=== PATIENT | female | born 2000 | race Caucasian/White ===

== ENCOUNTER 2020-09-11 13:31 | Emergency (ER) | payer SELFPAY ==
[~2020-09-11] VITALS: Ht 160 cm; Wt 80.0 kg
[2020-09-11 15:44] VITALS: BP 106/64; PULSE 80; TEMP 98.8
== END 2020-09-11 16:00 | disposition home or self-care (01) ==
LOC: COL.ER 13:31
DX: M79.601 Pain in right arm (principal)

== ENCOUNTER 2021-10-15 13:07 | Emergency (ER) | payer SELFPAY ==
[~2021-10-15] VITALS: Ht 160 cm; Wt 81.8 kg
[~2021-10-15 13:07] MED LIST: CEPHALEXIN500 M1 PO
[2021-10-15 13:54] VITALS: TEMP 98.3
[2021-10-15] MEDS ORDERED: ZOLOFT 25MG25 MG PO (14:11)
[2021-10-15 15:17] LABS: BASO % 0.5 % (0.0-2.0); EOS # 0.1 K/mm3 (0.0-0.7); EOS % 0.6 % (0-4.0); GRAN # 5.8 K/mm3 (1.4-6.5); HEMATOCRIT 42.4 % (37.0-47.0); HEMOGLOBIN 14.4 g/dl (12.5-16.0); LYMPH # 2.4 K/mm3 (1.2-3.4); LYMPH % 27.8 % (20.0-51.0); MEAN CELL VOLUME 84 fl (80.0-100.0); MEAN CORPUSCULAR HEMOGLOBIN 29 pg (27.0-31.0); MEAN CORPUSCULAR HGB CONC 34 g/dl (33.0-37.0); MEAN PLATELET VOLUME 10.8 fl (7.4-10.4); MONO # 0.4 K/mm3 (0.1-0.6); MONO % 4.9 % (1.7-9.3); PLATELET COUNT 254 K/mm3 (130-400); RED BLOOD COUNT 5.04 M/mm3 (4.10-5.30); REDCELL DISTRIBUTION WIDTH-CV 12.6 % (11.5-14.5)
[2021-10-15 15:39] LABS: ALBUMIN 4.2 gm/dL (3.5-5.0); BILIRUBIN,TOTAL 0.7 mg/dL (0.2-1.2); CALCIUM 9.4 mg/dL (8.4-10.2); CREATININE, serum 0.69 mg/dL (0.57-1.11); POTASSIUM 4.1 mmol/L (3.5-4.5); TOTAL PROTEIN 7.5 gm/dL (6.2-8.1)
[2021-10-15 16:23] VITALS: BP 112/72; PULSE 72
== END 2021-10-15 16:25 | disposition home or self-care (01) ==
LOC: COL.ER 13:07
PROVIDERS: Nurse Practitioner
DX: J06.9 Acute upper respiratory infection, unspecified (principal); F32.A Depression, unspecified; F41.9 Anxiety disorder, unspecified; F17.290 Nicotine dependence, other tobacco product, uncomplicated; Z20.822 Contact with and (suspected) exposure to COVID-19; Z79.899 Other long term (current) drug therapy
CPT/HCPCS: J1885; J7030

== ENCOUNTER 2022-05-08 14:34 | Outpatient (CLI) | payer MEDICAID ==
[~2022-05-08] VITALS: Ht 160 cm; Wt 97.6 kg
[~2022-05-08 14:34] MED LIST changes: +ZOLOFT 25MG25 MG PO
--- NOTE | 2022-05-08 14:35 | NUR ---
Presents to labor and delivery. States was kicked in the left lower abdominal area by a preschool child. Says just want to make sure everything is okay. Assessment done, questions offered and answered.
[2022-05-08 14:45] VITALS: BP 111/60; PULSE 86; TEMP 98
[2022-05-08 15:00] VITALS: BP 114/60; PULSE 85
[2022-05-08] MEDS ORDERED: PRENATAL TABLET PO (15:09)
[2022-05-08] MEDS ORDERED: PREVACID 30MG30 M1 PO (15:09)
[2022-05-08 15:30] VITALS: BP 111/68; PULSE 86
--- NOTE | 2022-05-08 16:00 | NUR ---
Discharge instructions given, verbalizes understanding. [id number] Dismissed to home, alert, ambulatory, stable.
== END 2022-05-08 16:10 | disposition home or self-care (01) ==
LOC: LDRO 14:34
DX: Z34.90 Encounter for supervision of normal pregnancy, unspecified, unspecified trimester (principal); Z3A.00 Weeks of gestation of pregnancy not specified

== ENCOUNTER 2022-05-31 14:54 | Outpatient (CLI) | payer MEDICAID ==
[~2022-05-31] VITALS: Ht 160 cm; Wt 103.2 kg
[~2022-05-31 14:54] MED LIST changes: +PRENATAL TABLET PO; +PREVACID 30MG30 M1 PO
[2022-05-31] MEDS ORDERED: UNISOM25 MG PO (15:19)
[2022-05-31] MEDS ORDERED: VITAMIN B-625 MG (15:19)
--- NOTE | 2022-05-31 16:05 | NUR ---
Pt reports "feeling much better" and ready to go home.
[2022-05-31 16:06] VITALS: BP 122/79; PULSE 100; TEMP 98.2
== END 2022-05-31 16:20 | disposition home or self-care (01) ==
LOC: LDRO 14:54
DX: O42.913 Preterm premature rupture of membranes, unspecified as to length of time between rupture and onset of labor, third trimester (principal); Z3A.33 33 weeks gestation of pregnancy

== ENCOUNTER 2022-07-07 18:24 | Inpatient (IN) | payer MEDICAID ==
[~2022-07-07] VITALS: Ht 160 cm; Wt 117.7 kg
[~2022-07-07 18:24] MED LIST changes: +UNISOM25 MG PO; +VITAMIN B-625 MG
[2022-07-10] VITALS (16 sets, daily range): BP systolic 112–150; BP diastolic 69–99; PULSE 81–114; TEMP 97.8–98.1
--- NOTE | 2022-07-10 05:21 | NUR ---
Ambulatory to unit for scheduled C/S, accompanied by spouse. Oriented to room, plan of care.
--- NOTE | 2022-07-10 05:52 | NUR ---
To RW for BP. 0554 to RL.
[2022-07-10 06:01] LABS: BASO % 0.4 % (0.0-2.0); EOS % 0.3 % (0.0-4.0); GRAN # 7.2 K/mm3 (1.4-6.5); GRAN % 65.2 % (42.2-75.2); HEMOGLOBIN 10.6 g/dl (12.5-16.0); LYMPH % 26.6 % (20.0-51.0); MEAN CELL VOLUME 81 fl (80.0-100.0); MEAN CORPUSCULAR HEMOGLOBIN 27 pg (27-31); MEAN CORPUSCULAR HGB CONC 34 g/dl (33.0-37.0); MEAN PLATELET VOLUME 12.5 fl (7.4-10.4); MONO # 0.8 K/mm3 (0.1-0.6); MONO % 6.9 % (1.7-9.3); PLATELET COUNT 177 K/mm3 (130-400); RED BLOOD COUNT 3.89 M/mm3 (4.10-5.30); REDCELL DISTRIBUTION WIDTH-CV 14.4 % (11.5-14.5)
[2022-07-10 06:12] LABS: HEMATOCRIT 31.3 % (37.0-47.0)
[2022-07-10] MEDS ORDERED: MOTRIN 800800 MG/TAB PO (06:28)
[2022-07-10] MEDS ORDERED: PERCOCET 325 MG1 TA2 PO (06:29)
[2022-07-10 06:32] LABS: COLLECTION METHOD CLEAN CATCH
[2022-07-10 06:44] LABS: ALBUMIN 2.2 gm/dL (3.5-5.0); BILIRUBIN,TOTAL 0.5 mg/dL (0.2-1.2); CALCIUM 8.7 mg/dL (8.4-10.2); CREATININE, serum 0.67 mg/dL (0.57-1.11); POTASSIUM 4.1 mmol/L (3.5-4.5); TOTAL PROTEIN 5.7 gm/dL (6.2-8.1)
[2022-07-10 06:59] LABS: MUCOUS Present (NOT PRESENT); URINE BACTERIA Rare /hpf (NONE SEEN); URINE WBC >50 /hpf (0-2)
[2022-07-10 07:04] LABS: URINE APPEARANCE Hazy (CLEAR/HAZY); URINE COLOR Yellow (YELLOW)
[2022-07-10 07:05] LABS: PH 6.5 (5.0-8.5); URINE BLOOD 1+ (NEGATIVE); URINE GLUCOSE Negative (NEGATIVE); URINE KETONE Negative (NEGATIVE); URINE NITRATE Negative (NEGATIVE); URINE PROTEIN(semi-quant) 3+ (NEGATIVE); URINE UROBILINOGEN 0.2 E.U/dL (0.2-1.0)
[2022-07-11 08:51] VITALS: BP 143/94; PULSE 83; TEMP 97.4
--- NOTE | 2022-07-11 10:01 | NUR ---
Initial visit; Parents thanked [employer] Helper for offering congratulations and God's blessings for the of their son. [employer] Helper thanked family for choosing [facility].
[2022-07-11 16:00] VITALS: BP 138/84; PULSE 89; TEMP 97.4
[2022-07-11 19:30] VITALS: BP 140/89; PULSE 100; TEMP 98.1
[2022-07-12 08:00] VITALS: BP 146/83; PULSE 87; TEMP 98.6
[2022-07-12 17:00] VITALS: BP 137/83; PULSE 92; TEMP 98.3
[2022-07-12 18:55] VITALS: BP 152/91; PULSE 88; TEMP 98.2
[2022-07-13] MEDS ORDERED: NORMODYNE100 MG PO (07:08)
[2022-07-13 07:30] VITALS: BP 140/94; PULSE 78; TEMP 97.7
--- NOTE | 2022-07-13 11:12 | NUR ---
DISCHARGE TEACHING COMPLETED. PATIENT EDUCATED ON FOLLOW UP APPOINTMENTS AND PRESCRIPTIONS. QUESTIONS INVITED AND ANSWERED.
== END 2022-07-13 13:24 | disposition home or self-care (01) | DRG 788 ==
LOC: OB 07-10 05:12
PROVIDERS: ADMIT Obstetrics & Gynecology
PROC: 10D00Z1 Extraction of Products of Conception, Low, Open Approach (ICD-10-PCS; principal; 2022-07-10)
DX: O36.63X0 Maternal care for excessive fetal growth, third trimester, not applicable or unspecified (principal); O99.344 Other mental disorders complicating childbirth; F41.9 Anxiety disorder, unspecified; Z3A.39 39 weeks gestation of pregnancy; Z37.0 Single live birth; O99.02 Anemia complicating childbirth; D64.9 Anemia, unspecified; O99.214 Obesity complicating childbirth; F42.9 Obsessive-compulsive disorder, unspecified; O99.824 Streptococcus B carrier state complicating childbirth; Z14.1 Cystic fibrosis carrier; O13.4 Gestational [pregnancy-induced] hypertension without significant proteinuria, complicating childbirth
CPT/HCPCS: J0690; J1100; J1885; J2405; J2590; J2765; J7120